=== PATIENT | female | born 1965 | race Caucasian/White ===

== ENCOUNTER → 2017-02-11 | Outpatient (CLI) | payer MEDICARE, BC, OTHER | LOC: RAD 13:57 | PROVIDERS: ATTEND Orthopaedic Surgery | DX: M25.561 Pain in right knee (principal); M22.41 Chondromalacia patellae, right knee ==

== ENCOUNTER 2019-03-31 09:24 | Emergency (ER) | payer MEDICARE, BC, OTHER ==
[2019-03-31] MEDS ORDERED: ONDANSETRON HCL INJ/PF 4 MG/2 ML SDV IV ONE (10:15)
[2019-03-31] MEDS ORDERED: MECLIZINE HCL 25 MG TABLET PO ONE (10:15)
--- NOTE | 2019-03-31 10:16 | ER Document Report ---
ED Medical Screen (RME) - General Chief Complaint: Dizziness Stated Complaint: DIZZY Time Seen by Provider: 03/31/19 10:10 Primary Care Provider: OBED BENAVIDEZ MD [Primary Care Provider] - Follow up as needed Mode of Arrival: Wheelchair Information source: Patient Notes: Patient presents complaining of nausea dizziness and generalized weakness for the past 2 weeks. Patient does complain of lower abdominal pain that started today. Patient attributes her lower abdominal pain to gas pains. Patient denies any urinary symptoms. Patient does complain of some shortness of breath as well. hx: Cerebral palsy, hypothyroid, hysterectomy I have greeted and performed a rapid initial assessment of this patient. A comprehensive ED assessment and evaluation of the patient, analysis of test results and completion of the medical decision making process will be conducted by additional ED providers. TRAVEL OUTSIDE OF THE [place] IN LAST 30 DAYS: No COUNTRY TRAVELED TO/FROM: [place] - Related Data Allergies/Adverse Reactions: acetaminophen [From Percocet] Allergy (Verified 03/31/19 09:28) adhesive [Adhesive] Allergy (Verified 07/14/16 01:36) oxycodone [From Percocet] Allergy (Verified 03/31/19 09:28) Sulfa (Sulfonamide Antibiotics) Allergy (Verified 07/14/16 01:36) Past Medical History Endocrine Medical History: Reports: Hx Hypothyroidism GI Medical History: Reports: Hx Gastroesophageal Reflux Disease Psychiatric Medical History: Reports: Hx Anxiety, Hx Depression Past Surgical History: Reports: Hx Orthopedic Surgery - fusion toe R foot - Immunizations Hx Diphtheria, Pertussis, Tetanus Vaccination: Yes Physical Exam - Vital signs Vitals: Temp Pulse Resp BP Pulse Ox 98 F 95 16 148/96 H 96 03/31/19 09:35 03/31/19 09:35 03/31/19 09:35 03/31/19 09:35 03/31/19 09:35 - Respiratory Respiratory status: No respiratory distress Breath sounds: Normal Course - Vital Signs Vital signs: Temp Pulse Resp BP Pulse Ox 98 F 95 16 148/96 H 96 03/31/19 09:35 03/31/19 09:35 03/31/19 09:35 03/31/19 09:35 03/31/19 09:35 Doctor's Discharge - Discharge Referrals: OBED BENAVIDEZ MD [Primary Care Provider] - Follow up as needed
--- NOTE | 2019-03-31 10:55 | RADIOLOGY REPORT (SQ) ---
EXAM DESCRIPTION: CHEST 2 VIEWS COMPLETED DATE/TIME: 03/31/2019 10:31 am REASON FOR STUDY: sob, weak COMPARISON: None. TECHNIQUE: Frontal and lateral radiographic views of the chest acquired. NUMBER OF VIEWS: Two view. LIMITATIONS: None. FINDINGS: LUNGS AND PLEURA: No opacities, masses or pneumothorax. No pleural effusion. MEDIASTINUM AND HILAR STRUCTURES: No masses or contour abnormalities. HEART AND VASCULAR STRUCTURES: Heart normal size. No evidence for failure. BONES: No acute findings. HARDWARE: None in the chest. OTHER: No other significant finding. IMPRESSION: NO SIGNIFICANT RADIOGRAPHIC FINDING IN THE CHEST. TECHNICAL DOCUMENTATION: JOB ID: [id number] [employer]- All Rights Reserved Reading location - IP/workstation name: [email or web address]
[2019-03-31 12:36] LABS: ABSOLUTE EOSINOPHILS # (AUTO) 0.2 10^3/uL (0.0-0.6); ABSOLUTE LYMPHOCYTES (AUTO) 3.2 10^3/uL (0.5-4.7); ABSOLUTE MONOCYTES (AUTO) 0.9 10^3/uL (0.1-1.4); ABSOLUTE NEUT (AUTO) 5.5 10^3/uL (1.7-8.2); BASOPHILS % (AUTO) 0.3 % (0-2); EOSINOPHILS % (AUTO) 1.9 % (0-6); HEMATOCRIT 45.8 % (36.0-47.0); HEMOGLOBIN 15.7 g/dL (12.0-15.5); LYMPHOCYTES % (AUTO) 32.3 % (13-45); MEAN CORPUSCULAR HEMOGLOBIN 28.7 pg (27.0-33.4); MEAN CORPUSCULAR HGB CONC 34.2 g/dL (32.0-36.0); MEAN CORPUSCULAR VOLUME 84 fl (80-97); MONOCYTES % (AUTO) 9.2 % (3-13); PLATELET COUNT 476 10^3/uL (150-450); RED BLOOD COUNT 5.45 10^6/uL (3.72-5.28); RED CELL DISTRIBUTION WIDTH 14.1 % (11.5-14.0); SEGMENTED NEUTROPHILS % (AUTO) 56.3 % (42-78); TOTAL CELLS COUNTED % (AUTO) 100 %; WHITE BLOOD COUNT 9.8 10^3/uL (4.0-10.5)
[2019-03-31 12:57] LABS: ALANINE AMINOTRANSFERASE 20 U/L (9-52); ALBUMIN 5.1 g/dL (3.5-5.0); ALKALINE PHOSPHATASE 101 U/L (38-126); ANION GAP 17 (5-19); ASPARTATE AMINO TRANSFERASE 20 U/L (14-36); BILIRUBIN,DIRECT 0.3 mg/dL (0.0-0.4); BILIRUBIN,TOTAL 0.5 mg/dL (0.2-1.3); BLOOD UREA NITROGEN 19 mg/dL (7-20); CALCIUM 10.7 mg/dL (8.4-10.2); CARBON DIOXIDE 21 mmol/L (22-30); CHLORIDE 103 mmol/L (98-107); GLUCOSE 121 mg/dL (75-110); POTASSIUM 3.8 mmol/L (3.6-5.0); SODIUM 140.6 mmol/L (137-145); TOTAL PROTEIN 8.3 g/dL (6.3-8.2)
[2019-03-31 15:03] LABS: APPEARANCE,URINE CLOUDY; BILIRUBIN,URINE NEGATIVE (NEGATIVE); CALCIUM OXALATE CRYSTALS,URINE FEW /HPF; COLOR,URINE YELLOW; GLUCOSE, URINE NEGATIVE (NEGATIVE); KETONES,URINE NEGATIVE (NEGATIVE); LEUKOCYTE ESTERASE,URINE MODERATE (NEGATIVE); NITRITE,URINE NEGATIVE (NEGATIVE); PROTEIN,URINE NEGATIVE (NEGATIVE); URINE SPECIFIC GRAVITY 1.019; UROBILINOGEN,URINE NEGATIVE mg/dL (<2.0)
[2019-03-31] MEDS ORDERED: NORMAL SALINE 1000 ML 1,000 ML IV ONE (15:28)
[2019-03-31] MEDS ORDERED: CEPHALEXIN 500 MG CAPSULE PO ONE (15:29)
--- NOTE | 2019-03-31 15:34 | ER Document Report ---
ED General - General Chief Complaint: Dizziness Stated Complaint: DIZZY Time Seen by Provider: 03/31/19 10:10 Primary Care Provider: OBED BENAVIDEZ MD [ACTIVE STAFF] - Follow up as needed Mode of Arrival: Wheelchair Notes: 53-year-old well-appearing patient with hypothyroidism and cerebral palsy presents to the emergency department with chief complaint of nausea, dizziness, and generalized weakness for greater than 2 weeks. She went to the urgent care multiple times and they diagnosed with allergies and gave her Zyrtec. She says the symptoms have persisted. She has developed lower abdominal pain over the last day. When I introduced myself in the room she said that she had a bowel movement and did not realize it laying there and states that she feels it was loose. She denies any fevers, complains of being cold, denies headache or neck stiffness, complains of some mild shortness of breath, denies chest pain, denies nausea or diaphoresis, the abdominal pain is described as gassy type feeling. She states her is also sick with GI type symptoms and has had loose stools for the last couple of days. No other complaints TRAVEL OUTSIDE OF THE [place] IN LAST 30 DAYS: No COUNTRY TRAVELED TO/FROM: [place] - Related Data Allergies/Adverse Reactions: acetaminophen [From Percocet] Allergy (Verified 03/31/19 09:28) adhesive [Adhesive] Allergy (Verified 07/14/16 01:36) oxycodone [From Percocet] Allergy (Verified 03/31/19 09:28) Sulfa (Sulfonamide Antibiotics) Allergy (Verified 07/14/16 01:36) Past Medical History - General Information source: Patient - Social History Smoking Status: Never Smoker Chew tobacco use (# tins/day): No Frequency of alcohol use: None Drug Abuse: None Family History: Reviewed & Not Pertinent Patient has suicidal ideation: No Patient has homicidal ideation: No Endocrine Medical History: Reports: Hx Hypothyroidism Renal/ Medical History: Denies: Hx Peritoneal Dialysis GI Medical History: Reports: Hx Gastroesophageal Reflux Disease Psychiatric Medical History: Reports: Hx Anxiety, Hx Depression Past Surgical History: Reports: Hx Orthopedic Surgery - fusion toe R foot - Immunizations Hx Diphtheria, Pertussis, Tetanus Vaccination: Yes Review of Systems - Review of Systems Constitutional: See HPI EENT: See HPI Cardiovascular: See HPI Respiratory: See HPI Gastrointestinal: See HPI Genitourinary: No symptoms reported Female Genitourinary: No symptoms reported Musculoskeletal: No symptoms reported Skin: No symptoms reported Hematologic/Lymphatic: No symptoms reported Neurological/Psychological: See HPI Physical Exam - Vital signs Vitals: Temp Pulse Resp BP Pulse Ox 98 F 95 16 148/96 H 96 03/31/19 09:35 03/31/19 09:35 03/31/19 09:35 03/31/19 09:35 03/31/19 09:35 - Notes Notes: PHYSICAL EXAMINATION: Reviewed vital signs and charting by RN GENERAL: Alert, interacts well. No acute distress. HEAD: Normocephalic, atraumatic. EYES: Pupils equal, round, and reactive to light. Extraocular movements intact. ENT: Oral mucosa moist, tongue midline. NECK: Full range of motion. Supple. Trachea midline. LUNGS: Clear to auscultation bilaterally, no wheezes, rales, or rhonchi. No respiratory distress. HEART: Regular rate and rhythm. No murmur ABDOMEN: soft, non-tender. No distention. Bowel sounds present EXTREMITIES: Moves all 4 extremities spontaneously. No edema, No cyanosis. PSYCH: Normal affect, normal mood. SKIN: Warm, dry, normal turgor. No rashes or lesions noted. Course - Re-evaluation Re-evalutation: 03/31/19 15:33 Overall well-appearing. Patient's older self upon introducing myself in the room. Will collect sample to send to the lab. No leukocytosis. Hemoglobin 15.7. Patient states that she is mildly dehydrated. Initial troponin negative and based on patient's symptoms I have very low suspicion for cardiac etiology at this time and will not get a delta. Urinalysis obtained and patient has a urinary tract infection. 03/31/19 15:34 03/31/19 16:58 Stool negative for any WBCs at this time. Patient most likely with a gastritis with a recent known sick contact. I gave her anticipatory guidance and instructed her to hydrate. She has strict return precautions. She is stable for discharge. Vitals are within normal limits. - Vital Signs Vital signs: Temp Pulse Resp BP Pulse Ox 98 F 95 16 148/96 H 96 03/31/19 09:35 03/31/19 09:35 03/31/19 09:35 03/31/19 09:35 03/31/19 09:35 - Laboratory Result Diagrams: 03/31/19 12:15 03/31/19 12:15 Laboratory results interpreted by me: 03/31/19 03/31/19 03/31/19 12:00 12:15 12:15 RBC 5.45 H Hgb 15.7 H RDW 14.1 H Plt Count 476 H Carbon Dioxide 21 L Glucose 121 H Calcium 10.7 H Total Protein 8.3 H Albumin 5.1 H Urine Blood SMALL H Ur Leukocyte Esterase MODERATE H Discharge - Discharge Clinical Impression: Weakness, Mild dehydration Urinary tract infection Qualifiers: Urinary tract infection type: acute cystitis Hematuria presence: without hematuria Qualified Code(s): N30.00 - Acute cystitis without hematuria Condition: Good Disposition: HOME, SELF-CARE Instructions: Urinary Tract Infection ([facility]) Additional Instructions: Your urine shows findings consistent with a urinary tract infection. Please take all the antibiotics as directed even if your symptoms have improved. Please follow-up with your primary care physician as needed. Return to emergency room if you develop fever >101F, persistent vomiting, become lethargic, have severe pain in your sides, or any other symptoms that are concerning to you. Your complete blood count also showed evidence that you may be mildly dehydrated so we gave you some IV fluids. Please continue to hydrate over the next several days. Stool studies did not show any evidence of a bacterial infection which is reassuring. Because you have just been is having the same symptoms is most likely a mild gastritis causing the diarrhea. You can eat bland foods for the next few days like the BRAT diet. If you start to develop intractable vomiting, have blood in your diet is diarrhea or unable to keep up with fluids, have fever as above, or have any other concerning symptoms please immediately return to the emergency department.
--- NOTE | 2019-03-31 17:34 | EKG REPORT ---
SEVERITY:- ABNORMAL ECG - SINUS RHYTHM LVH WITH SECONDARY REPOLARIZATION ABNORMALITY : Confirmed by: Margo Reyes MD 31-Mar-2019 17:33:28
[2019-03-31 17:54] VITALS: BP 115/68
== END 2019-03-31 17:54 | disposition home or self-care (01) ==
LOC: ER 09:24
DX: N30.00 Acute cystitis without hematuria (principal); E86.0 Dehydration; R53.1 Weakness; R42 Dizziness and giddiness; R11.0 Nausea; R06.02 Shortness of breath; T78.40XA Allergy, unspecified, initial encounter; X58.XXXA Exposure to other specified factors, initial encounter; Z88.8 Allergy status to other drugs, medicaments and biological substances; Z91.048 Other nonmedicinal substance allergy status; Z88.5 Allergy status to narcotic agent; Z88.2 Allergy status to sulfonamides
CPT/HCPCS: 93005; 99284; 96361; 96374; 36415; 87045; 89055; 87205; 83735; 85025; 80053; 81001; 84484; 71046; 93010; A9270 ×2; J2405; J7030